=== PATIENT | male | born 1990 | race Caucasian/White ===

== ENCOUNTER 2021-09-02 23:18 | Inpatient (IN) | payer OTHER, SELFPAY ==
--- NOTE | ~2021-09-02 | CT_ITS ---
EXAMINATION: CT HEAD WITHOUT CONTRAST CLINICAL INFORMATION: Head trauma. COMPARISON: None TECHNIQUE: Contiguous axial imaging was performed from the skull base to vertex without intravenous administration of contrast. This CT examination was performed using dose optimization techniques as appropriate, variously including the following: *Automated exposure control *Adjustment of mA and/or kV according to patient size (this includes techniques or standardized protocols for targeted exams where dose is matched to indication/reason for exam; i.e. extremities or head) *Use of iterative reconstruction technique DLP: 719 mGy-cm FINDINGS: There is no evidence of acute intracranial hemorrhage or territorial infarction. No abnormal mass effect or midline shift is seen. Oropeza to white matter differentiation is well preserved. No extra-axial fluid collections are identified. The ventricles are normal in size. There is no abnormal attenuation within the brain parenchyma. The osseous structures and soft tissues are normal. The mastoid air cells are well aerated. There is mild left ethmoid and left maxillary mucosal thickening. CT/CT head/brain wo con IMPRESSION: No acute intracranial pathology.
[2021-09-02 23:44] VITALS: BP 122/72; PULSE 82; RESP 18; TEMP 36.7; O2SAT 98
[2021-09-03] VITALS: BP 122/72; PULSE 82; RESP 18; TEMP 36.6; O2SAT 98
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
[2021-09-03 01:22] VITALS: BMI 25.2
[2021-09-03] MEDS: Gabapentin 400 MG CAPSULE 800 MG PO ×2 (08:36→20:37)
[2021-09-03] MEDS: Famotidine 20 MG TABLET PO ×2 (08:36→20:36)
[2021-09-03] MEDS: buPROPion HCl XL 300 MG TAB.ER.24H PO (08:36)
[2021-09-03 09:00] VITALS: BP 125/75; PULSE 100; RESP 18; TEMP 36.7; O2SAT 100
[2021-09-03] MEDS: diazePAM 5 MG TABLET 10 MG PO ×2 (09:20→20:38)
[2021-09-03] MEDS: Ziprasidone 60 MG CAPSULE PO ×2 (10:02→20:38)
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
[2021-09-03 18:00] VITALS: BP 118/64; PULSE 96; RESP 16; TEMP 36.3; O2SAT 99
[2021-09-03] MEDS: Prazosin HCL 1 MG CAPSULE 2 MG PO (20:37)
[2021-09-03] MEDS: Prazosin HCL 1 MG CAPSULE PO (20:37)
[2021-09-03] MEDS: Zolpidem Tartrate 5 MG TABLET 10 MG PO (20:38)
[2021-09-04] MEDS: chlorproMAZINE HCl 25 MG TABLET 50 MG PO (01:43)
[2021-09-04] MEDS: diazePAM 5 MG TABLET 10 MG PO ×2 (07:20→15:29)
[2021-09-04 07:56] VITALS: PULSE 99; RESP 16; TEMP 36.1; O2SAT 100
[2021-09-04] MEDS: Gabapentin 400 MG CAPSULE 800 MG PO ×3 (07:56→20:24)
[2021-09-04] MEDS: Famotidine 20 MG TABLET PO ×2 (07:56→20:24)
[2021-09-04] MEDS: buPROPion HCl XL 300 MG TAB.ER.24H PO (07:57)
[2021-09-04] MEDS: Ziprasidone 60 MG CAPSULE PO ×2 (07:57→20:24)
--- NOTE | 2021-09-04 11:30 | P.PNPSI_ITS ---
Subjective Subjective Date of Service: 09/04/21 Reason For Visit: major depression Subjective Notes: Conditional Voluntary Interim History: Pt mostly in his room, sleeping. Pt reports he takes valium 4 hrs apart only twice a day. He denies SI/HI. He initially asked this securities underwriter to meet later, but later pt continued to be in bed and minimally engaging in conversation oter than reporting he was doing okay Per nursing, no behavioral concerns. Medication Compliance: Yes Side effects from medications: No Review of Systems Review of Systems Yes all other systems are reviewed and are negative Mental Status Exam Mental Status Exam Narrative: Appearance: casually groomed, fair hygiene in NAD Behavior:intense look, irritable edge, calmer but still on edge psychomotor:no agitation or retardation noted Speech: clear, normal rate/rhythm/spontaneous Thought process:mostly linear, focused on finding housing and having ECT Thought content:complaints about doctors not caring about him, getting agitated easily Mood: depressed Affect: irritable SI:passive HI:none VH/AH:none Delusions:none Insight/judgment:poor Memory/cog: alert, oriented x 3. grossly intact to conversational testing. Diagnostics Vital Signs (24Hr): Vital Signs - 24 hr 09/04/21 07:56 Temperature 97.0 F Pulse Rate 99 Respiratory Rate 16 Pulse Oximetry 100 BMI result Verdana 4 Body Mass Index Verdana 4 25.2 Verdana 4 Verdana 4 Imaging Radiology Impressions: ITS Impressions Head CT 09/03/21 20:33 IMPRESSION: No acute intracranial pathology. Medications Medications Current Medications Acetaminophen (Acetaminophen 325 Mg Tablet) 650 mg PO Q6H PRN PRN Reason: Headache/Pain Mild Scale (1-3) Al Hydroxide/Mg Hydroxide (Magnesium Hydrox/Alum Hydrox 30 Ml Oral.Susp) 30 ml PO Q6H PRN PRN Reason: Heartburn/Nausea Bupropion HCl (Bupropion Hcl Xl 300 Mg Tab.Er.24h) 300 mg PO DAILY [facility] Last Admin: 09/04/21 07:57 Dose: 300 mg Documented by: Chlorpromazine HCl (Chlorpromazine Hcl 25 Mg Tablet) 50 mg PO Q6H PRN PRN Reason: Agitation Last Admin: 09/04/21 01:43 Dose: 50 mg Documented by: Diazepam (Diazepam 5 Mg Tablet) 10 mg PO Q4H PRN PRN Reason: Anxiety Last Admin: 09/04/21 15:29 Dose: 10 mg Documented by: Famotidine (Famotidine 20 Mg Tablet) 20 mg PO BID [facility] Last Admin: 09/04/21 07:56 Dose: 20 mg Documented by: Gabapentin (Gabapentin 400 Mg Capsule) 800 mg PO QID [facility] Last Admin: 09/04/21 16:07 Dose: 800 mg Documented by: Hydroxyzine HCl (Hydroxyzine Hcl 25 Mg Tablet) 25 mg PO BEDTIME PRN PRN Reason: Anxiety Magnesium Hydroxide (Milk Of Magnesia 30 Ml Oral.Susp) 30 ml PO DAILY PRN PRN Reason: Constipation Nicotine Polacrilex (Nicotine Polacrilex 2 Mg Gum) 4 mg BUCCAL Q2H PRN PRN Reason: Nicotine Cravings Prazosin HCl (Prazosin Hcl 1 Mg Capsule) 1 mg PO BEDTIME [facility]; Protocol Last Admin: 09/03/21 20:37 Dose: 1 mg Documented by: Prazosin HCl (Prazosin Hcl 1 Mg Capsule) 2 mg PO BEDTIME [facility]; Protocol Last Admin: 09/03/21 20:37 Dose: 2 mg Documented by: Trazodone HCl (Trazodone Hcl 50 Mg Tablet) 50 mg PO BEDTIME PRN PRN Reason: Insomnia Ziprasidone (Ziprasidone 60 Mg Capsule) 60 mg PO BID [facility] Last Admin: 09/04/21 07:57 Dose: 60 mg Documented by: Zolpidem Tartrate (Zolpidem Tartrate 5 Mg Tablet) 10 mg PO BEDTIME [facility] Last Admin: 09/03/21 20:38 Dose: 10 mg Documented by: Allergies Allergies Allergy/AdvReac Type Severity Reaction Status Date / Time haloperidol [From AdvReac Unknown Unknown Unverified 09/03/21 00:05 Haldol] Assessment & Plan Assessment & Plan (1) Bipolar 1 disorder, mixed, moderate: Status: Acute Code(s): F31.62 - Bipolar disorder, current episode mixed, moderate (2) Synthetic cannabinoid dependence: Status: Acute Code(s): F19.20 - Other psychoactive substance dependence, uncomplicated (3) Alcohol use disorder, moderate, dependence: Status: Acute Code(s): F10.20 - Alcohol dependence, uncomplicated (4) TBI (traumatic brain injury): Status: Acute Code(s): S06.9X9A - Unspecified intracranial injury with loss of consciousness of unspecified duration, initial encounter Plan Mr. Finney is a 31 year-old male with hx of alcohol use, K2 use, Bipolar Disorder who self presented to [facility] after he called 911 and reported SI with plan to hang himself or by suicide by copy messenger with a twist. His utox positive for benzo and cannabinoids. Pt has been homeless for past 10 years. He reports hx of impulsivity, aggression, mood lability. No hallucination nor delusional content. Pt presents as irritable, low frustration tolerance. He asks for ECT as he reports he was told it can help symptoms described above. Pt has been living on streets, appears quite reactive. He reports SI but no plan today. He hopes that hospital can find him housing, which pt informed that may not be realistic. We discussed risks, benefits and alternative treatment options. Pt declines starting mood stabilizer such as depakote, or trileptal or lithium. Pt reports he would only take thorazine as needed not scheduled as it is too sedating. Pt reports he has been on clonidine but his BP too low. He was hesitant about beta froy. He reports best medication diazepam. PLAN 1. Admit to M3, CV, 15 minutes checks for safety 2. Continue thorazine and other medications. consider beta froy if pt declines mood stabilizer 3. Obtain collateral information 4. Aftercare planning I spent minutes with the patient and/or on the patient floor today, greater than?50% of which was spent counseling/coordinating care. Reason for contiued inpatient stay Substantial Risk for: harm to others and inability to function
[2021-09-04 20:15] VITALS: BP 131/85; PULSE 100; TEMP 36.7
[2021-09-04] MEDS: Zolpidem Tartrate 5 MG TABLET 10 MG PO (20:24)
[2021-09-04] MEDS: Prazosin HCL 1 MG CAPSULE 2 MG PO (20:33)
[2021-09-04] MEDS: Prazosin HCL 1 MG CAPSULE PO (20:33)
[2021-09-05] MEDS: diazePAM 5 MG TABLET 10 MG PO ×2 (07:03→14:15)
[2021-09-05] MEDS: Famotidine 20 MG TABLET PO ×2 (08:15→20:46)
[2021-09-05] MEDS: Ziprasidone 60 MG CAPSULE PO ×2 (08:15→20:46)
[2021-09-05] MEDS: buPROPion HCl XL 300 MG TAB.ER.24H PO (08:15)
[2021-09-05] MEDS: Gabapentin 400 MG CAPSULE 800 MG PO ×4 (08:15→20:48)
[2021-09-05 08:45] VITALS: BP 113/79; PULSE 85; TEMP 37.2
--- NOTE | 2021-09-05 08:50 | P.PNPSI_ITS ---
Subjective Subjective Date of Service: 09/05/21 Reason For Visit: major depression Subjective Notes: Conditional Voluntary Interim History: 09/04: Pt mostly in his room, sleeping. Pt reports he takes valium 4 hrs apart only twice a day. He denies SI/HI. He initially asked this program writer to meet later, but later pt continued to be in bed and minimally engaging in conversation oter than reporting he was doing okay Per nursing, no behavioral concerns. 09/05: Remains hyperactive in common area/talking w POS/ Speaking Ukrainian with Ukrainian staff, intrusive. Refused to meet TW you did not have time for me earlier Why dont you dance for me . Review of Systems Medical Review of Systems: unchanged Review of Systems Review of Systems Yes all other systems are reviewed and are negative Mental Status Exam Mental Status Exam Narrative: Appearance: casually groomed, fair hygiene in NAD Behavior:intense look, irritable edge, calmer but still on edge psychomotor:no agitation or retardation noted Speech: clear, normal rate/rhythm/spontaneous Thought process:mostly linear, focused on finding housing and having ECT Thought content:complaints about doctors not caring about him, getting agitated easily Mood: depressed Affect: irritable SI:passive HI:none VH/AH:none Delusions:none Insight/judgment:poor Memory/cog: alert, oriented x 3. grossly intact to conversational testing. Diagnostics Vital Signs (24Hr): Vital Signs - 24 hr 09/04/21 20:15 Temperature 98.0 F Pulse Rate 100 Blood Pressure 131/85 BMI result Verdana 4 Body Mass Index Verdana 4 25.2 Verdana 4 Verdana 4 Imaging Radiology Impressions: ITS Impressions Head CT 09/03/21 20:33 IMPRESSION: No acute intracranial pathology. Medications Medications Current Medications Acetaminophen (Acetaminophen 325 Mg Tablet) 650 mg PO Q6H PRN PRN Reason: Headache/Pain Mild Scale (1-3) Al Hydroxide/Mg Hydroxide (Magnesium Hydrox/Alum Hydrox 30 Ml Oral.Susp) 30 ml PO Q6H PRN PRN Reason: Heartburn/Nausea Bupropion HCl (Bupropion Hcl Xl 300 Mg Tab.Er.24h) 300 mg PO DAILY [facility] Last Admin: 09/05/21 08:15 Dose: 300 mg Documented by: Chlorpromazine HCl (Chlorpromazine Hcl 25 Mg Tablet) 50 mg PO Q6H PRN PRN Reason: Agitation Last Admin: 09/04/21 01:43 Dose: 50 mg Documented by: Diazepam (Diazepam 5 Mg Tablet) 10 mg PO Q4H PRN PRN Reason: Anxiety Last Admin: 09/05/21 07:03 Dose: 10 mg Documented by: Famotidine (Famotidine 20 Mg Tablet) 20 mg PO BID [facility] Last Admin: 09/05/21 08:15 Dose: 20 mg Documented by: Gabapentin (Gabapentin 400 Mg Capsule) 800 mg PO QID [facility] Last Admin: 09/05/21 08:15 Dose: 800 mg Documented by: Hydroxyzine HCl (Hydroxyzine Hcl 25 Mg Tablet) 25 mg PO BEDTIME PRN PRN Reason: Anxiety Magnesium Hydroxide (Milk Of Magnesia 30 Ml Oral.Susp) 30 ml PO DAILY PRN PRN Reason: Constipation Nicotine Polacrilex (Nicotine Polacrilex 2 Mg Gum) 4 mg BUCCAL Q2H PRN PRN Reason: Nicotine Cravings Prazosin HCl (Prazosin Hcl 1 Mg Capsule) 1 mg PO BEDTIME [facility]; Protocol Last Admin: 09/04/21 20:33 Dose: 1 mg Documented by: Prazosin HCl (Prazosin Hcl 1 Mg Capsule) 2 mg PO BEDTIME [facility]; Protocol Last Admin: 09/04/21 20:33 Dose: 2 mg Documented by: Trazodone HCl (Trazodone Hcl 50 Mg Tablet) 50 mg PO BEDTIME PRN PRN Reason: Insomnia Ziprasidone (Ziprasidone 60 Mg Capsule) 60 mg PO BID [facility] Last Admin: 09/05/21 08:15 Dose: 60 mg Documented by: Zolpidem Tartrate (Zolpidem Tartrate 5 Mg Tablet) 10 mg PO BEDTIME [facility] Last Admin: 09/04/21 20:24 Dose: 10 mg Documented by: Allergies Allergies Allergy/AdvReac Type Severity Reaction Status Date / Time metoclopramide [From Allergy Unknown Abdominal Verified 09/05/21 07:01 Reglan] Pain haloperidol [From AdvReac Unknown Involuntary Verified 09/05/21 07:01 Haldol] Spasms Assessment & Plan Assessment & Plan (1) Bipolar 1 disorder, mixed, moderate: Status: Acute Code(s): F31.62 - Bipolar disorder, current episode mixed, moderate (2) Synthetic cannabinoid dependence: Status: Acute Code(s): F19.20 - Other psychoactive substance dependence, uncomplicated (3) Alcohol use disorder, moderate, dependence: Status: Acute Code(s): F10.20 - Alcohol dependence, uncomplicated (4) TBI (traumatic brain injury): Status: Acute Code(s): S06.9X9A - Unspecified intracranial injury with loss of consciousness of unspecified duration, initial encounter Plan Mr. Finney is a 31 year-old male with hx of alcohol use, K2 use, Bipolar Disorder who self presented to [facility] after he called 911 and reported SI with plan to hang himself or by suicide by buffer copper with a twist. His utox positive for benzo and cannabinoids. Pt has been homeless for past 10 years. He reports hx of impulsivity, aggression, mood lability. No hallucination nor delusional content. Pt presents as irritable, low frustration tolerance. He asks for ECT as he reports he was told it can help symptoms described above. Pt has been living on streets, appears quite reactive. He reports SI but no plan today. He hopes that hospital can find him housing, which pt informed that may not be realistic. We discussed risks, benefits and alternative treatment options. Pt declines starting mood stabilizer such as depakote, or trileptal or lithium. Pt reports he would only take thorazine as needed not scheduled as it is too sedating. Pt reports he has been on clonidine but his BP too low. He was hesitant about beta froy. He reports best medication diazepam. PLAN 1. Admit to M3, CV, 15 minutes checks for safety 2. Continue thorazine and other medications. consider beta froy if pt declines mood stabilizer 3. Obtain collateral information 4. Aftercare planning 09/05: Ct Rx plan. I spent minutes with the patient and/or on the patient floor today, greater than?50% of which was spent counseling/coordinating care. Reason for contiued inpatient stay Substantial Risk for: harm to others and rapid decompensation
[2021-09-05 19:54] VITALS: BP 110/73; PULSE 85; RESP 16; TEMP 36.7; O2SAT 99
[2021-09-05] MEDS: Prazosin HCL 1 MG CAPSULE PO (20:46)
[2021-09-05] MEDS: Zolpidem Tartrate 5 MG TABLET 10 MG PO (20:47)
[2021-09-05] MEDS: Prazosin HCL 1 MG CAPSULE 2 MG PO (20:49)
--- NOTE | 2021-09-06 05:10 | P.PNPSI_ITS ---
Subjective Subjective Date of Service: 09/06/21 Reason For Visit: major depression Interim History: 09/04: Pt mostly in his room, sleeping. Pt reports he takes valium 4 hrs apart only twice a day. He denies SI/HI. He initially asked this designer writer to meet later, but later pt continued to be in bed and minimally engaging in conversation oter than reporting he was doing okay Per nursing, no behavioral concerns. 09/05: Remains hyperactive in common area/talking w POS/ Speaking Czech with S panish staff, intrusive. Refused to meet TW you did not have time for me earlier Why dont you dance for me . 09/06: Reluctantly agreed to meet then stated What can you do for me . Talked about not screwing this stay here bc Donna been kicked out of all places . Last night refused a roommate and threw a mattress, threatened harm. I broke my previous roommate nose and socket (in an earlier hosp stay ). 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 Pt remains edgy. No roommate recommended Medication Compliance: Yes Side effects from medications: No Review of Systems Acute medical concerns: No Review of Systems Review of Systems Yes all other systems are reviewed and are negative Mental Status Exam Mental Status Exam Narrative: Appearance: casually groomed, fair hygiene in NAD Behavior:intense look, irritable edge, calmer but still on edge psychomotor:no agitation or retardation noted Speech: clear, normal rate/rhythm/spontaneous Thought process:mostly linear, focused on finding housing and having ECT Thought content:complaints about doctors not caring about him, getting agitated easily Mood: depressed Affect: irritable SI:passive HI:none VH/AH:none Delusions:none Insight/judgment:poor Memory/cog: alert, oriented x 3. grossly intact to conversational testing. Diagnostics Vital Signs (24Hr): Vital Signs - 24 hr 09/05/21 08:45 09/05/21 19:54 Temperature 98.9 F 98.1 F Pulse Rate 85 85 Respiratory Rate 16 Blood Pressure 113/79 110/73 Pulse Oximetry 99 BMI result Verdana 4 Body Mass Index Verdana 4 25.2 Verdana 4 Verdana 4 Imaging Radiology Impressions: ITS Impressions Head CT 09/03/21 20:33 IMPRESSION: No acute intracranial pathology. Medications Medications Current Medications Acetaminophen (Acetaminophen 325 Mg Tablet) 650 mg PO Q6H PRN PRN Reason: Headache/Pain Mild Scale (1-3) Al Hydroxide/Mg Hydroxide (Magnesium Hydrox/Alum Hydrox 30 Ml Oral.Susp) 30 ml PO Q6H PRN PRN Reason: Heartburn/Nausea Bupropion HCl (Bupropion Hcl Xl 300 Mg Tab.Er.24h) 300 mg PO DAILY [facility] Last Admin: 09/05/21 08:15 Dose: 300 mg Documented by: Chlorpromazine HCl (Chlorpromazine Hcl 25 Mg Tablet) 50 mg PO Q6H PRN PRN Reason: Agitation Last Admin: 09/04/21 01:43 Dose: 50 mg Documented by: Diazepam (Diazepam 5 Mg Tablet) 10 mg PO Q4H PRN PRN Reason: Anxiety Last Admin: 09/05/21 14:15 Dose: 10 mg Documented by: Famotidine (Famotidine 20 Mg Tablet) 20 mg PO BID [facility] Last Admin: 09/05/21 20:46 Dose: 20 mg Documented by: Gabapentin (Gabapentin 400 Mg Capsule) 800 mg PO QID [facility] Last Admin: 09/05/21 20:48 Dose: 800 mg Documented by: Hydroxyzine HCl (Hydroxyzine Hcl 25 Mg Tablet) 25 mg PO BEDTIME PRN PRN Reason: Anxiety Magnesium Hydroxide (Milk Of Magnesia 30 Ml Oral.Susp) 30 ml PO DAILY PRN PRN Reason: Constipation Nicotine Polacrilex (Nicotine Polacrilex 2 Mg Gum) 4 mg BUCCAL Q2H PRN PRN Reason: Nicotine Cravings Prazosin HCl (Prazosin Hcl 1 Mg Capsule) 1 mg PO BEDTIME [facility]; Protocol Last Admin: 09/05/21 20:46 Dose: 1 mg Documented by: Prazosin HCl (Prazosin Hcl 1 Mg Capsule) 2 mg PO BEDTIME [facility]; Protocol Last Admin: 09/05/21 20:49 Dose: 2 mg Documented by: Trazodone HCl (Trazodone Hcl 50 Mg Tablet) 50 mg PO BEDTIME PRN PRN Reason: Insomnia Ziprasidone (Ziprasidone 60 Mg Capsule) 60 mg PO BID [facility] Last Admin: 09/05/21 20:46 Dose: 60 mg Documented by: Zolpidem Tartrate (Zolpidem Tartrate 5 Mg Tablet) 10 mg PO BEDTIME [facility] Last Admin: 09/05/21 20:47 Dose: 10 mg Documented by: Allergies Allergies Allergy/AdvReac Type Severity Reaction Status Date / Time metoclopramide [From Allergy Unknown Abdominal Verified 09/05/21 07:01 Reglan] Pain haloperidol [From AdvReac Unknown Involuntary Verified 09/05/21 07:01 Haldol] Spasms Assessment & Plan Assessment & Plan (1) Bipolar 1 disorder, mixed, moderate: Status: Acute Code(s): F31.62 - Bipolar disorder, current episode mixed, moderate (2) Synthetic cannabinoid dependence: Status: Acute Code(s): F19.20 - Other psychoactive substance dependence, uncomplicated (3) Alcohol use disorder, moderate, dependence: Status: Acute Code(s): F10.20 - Alcohol dependence, uncomplicated (4) TBI (traumatic brain injury): Status: Acute Code(s): S06.9X9A - Unspecified intracranial injury with loss of consciousness of unspecified duration, initial encounter Plan Mr. 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 His utox positive for benzo and cannabinoids. Pt has been homeless for past 10 years. He reports hx of impulsivity, aggression, mood lability. No hallucination nor delusional content. Pt presents as irritable, low frustration tolerance. He asks for ECT as he reports he was told it can help symptoms described above. Pt has been living on streets, appears quite reactive. He reports SI but no plan today. He hopes that hospital can find him housing, which pt informed that may not be realistic. We discussed risks, benefits and alternative treatment options. Pt declines starting mood stabilizer such as depakote, or trileptal or lithium. Pt reports he would only take thorazine as needed not scheduled as it is too sedating. Pt reports he has been on clonidine but his BP too low. He was hesitant about beta froy. He reports best medication diazepam. PLAN 1. Admit to M3, CV, 15 minutes checks for safety 2. Continue thorazine and other medications. consider beta froy if pt declines mood stabilizer 3. Obtain collateral information 4. Aftercare planning 09/05: Ct Rx plan. 09/06: Ct Rx plan I spent minutes with the patient and/or on the patient floor today, greater than?50% of which was spent counseling/coordinating care. Reason for contiued inpatient stay Substantial Risk for: harm to others and rapid decompensation
[2021-09-06] MEDS: diazePAM 5 MG TABLET 10 MG PO ×2 (06:02→21:08)
[2021-09-06] MEDS: Famotidine 20 MG TABLET PO ×2 (07:49→21:07)
[2021-09-06] MEDS: buPROPion HCl XL 300 MG TAB.ER.24H PO (07:49)
[2021-09-06] MEDS: Gabapentin 400 MG CAPSULE 800 MG PO ×4 (07:49→21:10)
[2021-09-06] MEDS: Ziprasidone 60 MG CAPSULE PO ×2 (07:49→21:08)
[2021-09-06 07:56] VITALS: BP 115/84; PULSE 80; RESP 16; TEMP 36.6; O2SAT 100
--- NOTE | 2021-09-06 12:53 | PC.NURSE ---
On 09/05/21 I met with patient to request that he move in to another room so I could free up a room for a female admission. He declined to move politely. When I told him we have to private rooms and my other option was to move a male patient into his room he became quickly agitated. He began shouting at me If they fucking snore I will lose it. I swear I will hurt somebody. Despite encouragement to calm down and have a conversation, patient escalated, continuing to shout loudly I'll make sure no one can sleep here. while he proceeded to strip the sheets from other bed in his room and throw and kick the mattress into the hallway. In addition patient shouted, Don't move that fucking retard in with me. I'll hurt people. Firm limits were set and patient was redirected by this nurse to stop shouting and put the mattress back on the bed. He reluctantly complied. He spent some time in his room alone. Later returning to the milieu where he glared angrily at this nurse
[2021-09-06 18:00] VITALS: RESP 16
[2021-09-06] MEDS: Zolpidem Tartrate 5 MG TABLET 10 MG PO (21:00)
[2021-09-06] MEDS: Prazosin HCL 1 MG CAPSULE 2 MG PO (21:11)
[2021-09-06] MEDS: Prazosin HCL 1 MG CAPSULE PO (21:11)
[2021-09-06] MEDS: chlorproMAZINE HCl 25 MG TABLET 50 MG PO (23:28)
[2021-09-07] MEDS: diazePAM 5 MG TABLET 10 MG PO (06:47)
[2021-09-07] MEDS: Gabapentin 400 MG CAPSULE 800 MG PO ×2 (08:00→12:58)
[2021-09-07] MEDS: buPROPion HCl XL 300 MG TAB.ER.24H PO (08:00)
[2021-09-07] MEDS: Famotidine 20 MG TABLET PO (08:00)
[2021-09-07 08:02] VITALS: BP 122/77; PULSE 94; RESP 16; TEMP 36.5; O2SAT 99
[2021-09-07] MEDS: LORazepam 1 MG TABLET 2 MG PO (11:26)
--- NOTE | 2021-09-07 12:16 | P.PNPSI_ITS ---
Subjective Subjective Date of Service: 09/07/21 Reason For Visit: major depression Interim History: 09/04: Pt mostly in his room, sleeping. Pt reports he takes valium 4 hrs apart only twice a day. He denies SI/HI. He initially asked this journalists and other writers to meet later, but later pt continued to be in bed and minimally engaging in conversation oter than reporting he was doing okay Per nursing, no behavioral concerns. 09/05: Remains hyperactive in common area/talking w POS/ Speaking Lithuanian with S panish staff, intrusive. Refused to meet TW bc you did not have time for me earlier Why dont you dance for me . 09/06: Reluctantly agreed to meet then stated What can you do for me . Talked about not screwing this stay here bc Donna been kicked out of all places . Last night refused a roommate and threw a mattress, threatened harm. I broke my previous roommate nose and socket (in an earlier hosp stay ). 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 Pt remains edgy. No roommate recommended Review of Systems Review of Systems Yes all other systems are reviewed and are negative Mental Status Exam Mental Status Exam Narrative: Appearance: casually groomed, fair hygiene in NAD Behavior:intense look, irritable edge, calmer but still on edge psychomotor:no agitation or retardation noted Speech: clear, normal rate/rhythm/spontaneous Thought process:mostly linear, focused on finding housing and staying on unit until hospital finds him housing Thought content:complaints about doctors not caring about him, getting agitated easily Mood: depressed Affect: irritable SI:denies HI:none VH/AH:none Delusions:none Insight/judgment:poor x 2. Memory/cog: alert, oriented x 3. grossly intact to conversational testing. Diagnostics Vital Signs (24Hr): Vital Signs - 24 hr 09/06/21 18:00 09/07/21 08:02 Temperature 97.7 F Pulse Rate 94 Respiratory Rate 16 16 Blood Pressure 122/77 Pulse Oximetry 99 BMI result Body Mass Index 25.2 Imaging Radiology Impressions: ITS Impressions Head CT 09/03/21 20:33 IMPRESSION: No acute intracranial pathology. Medications Medications Current Medications Acetaminophen (Acetaminophen 325 Mg Tablet) 650 mg PO Q6H PRN PRN Reason: Headache/Pain Mild Scale (1-3) Al Hydroxide/Mg Hydroxide (Magnesium Hydrox/Alum Hydrox 30 Ml Oral.Susp) 30 ml PO Q6H PRN PRN Reason: Heartburn/Nausea Bupropion HCl (Bupropion Hcl Xl 300 Mg Tab.Er.24h) 300 mg PO DAILY [facility] Last Admin: 09/07/21 08:00 Dose: 300 mg Documented by: Chlorpromazine HCl (Chlorpromazine Hcl 25 Mg Tablet) 50 mg PO Q6H PRN PRN Reason: Agitation Last Admin: 09/06/21 23:28 Dose: 50 mg Documented by: Diazepam (Diazepam 5 Mg Tablet) 10 mg PO DAILY PRN PRN Reason: Anxiety Famotidine (Famotidine 20 Mg Tablet) 20 mg PO BID [facility] Last Admin: 09/07/21 08:00 Dose: 20 mg Documented by: Gabapentin (Gabapentin 400 Mg Capsule) 800 mg PO QID [facility] Last Admin: 09/07/21 08:00 Dose: 800 mg Documented by: Hydroxyzine HCl (Hydroxyzine Hcl 25 Mg Tablet) 25 mg PO BEDTIME PRN PRN Reason: Anxiety Magnesium Hydroxide (Milk Of Magnesia 30 Ml Oral.Susp) 30 ml PO DAILY PRN PRN Reason: Constipation Nicotine Polacrilex (Nicotine Polacrilex 2 Mg Gum) 4 mg BUCCAL Q2H PRN PRN Reason: Nicotine Cravings Prazosin HCl (Prazosin Hcl 1 Mg Capsule) 1 mg PO BEDTIME [facility]; Protocol Last Admin: 09/06/21 21:11 Dose: 1 mg Documented by: Prazosin HCl (Prazosin Hcl 1 Mg Capsule) 2 mg PO BEDTIME [facility]; Protocol Last Admin: 09/06/21 21:11 Dose: 2 mg Documented by: Trazodone HCl (Trazodone Hcl 50 Mg Tablet) 50 mg PO BEDTIME PRN PRN Reason: Insomnia Zolpidem Tartrate (Zolpidem Tartrate 5 Mg Tablet) 10 mg PO BEDTIME [facility] Last Admin: 09/06/21 21:00 Dose: 10 mg Documented by: Allergies Allergies Allergy/AdvReac Type Severity Reaction Status Date / Time metoclopramide [From Reglan] Allergy Unknown Abdominal Verified 09/05/21 07:01 Pain haloperidol [From Haldol] AdvReac Unknown Involuntary Verified 09/05/21 07:01 Spasms Assessment & Plan Assessment & Plan (1) Bipolar 1 disorder, mixed, moderate: Status: Acute Code(s): F31.62 - Bipolar disorder, current episode mixed, moderate (2) Synthetic cannabinoid dependence: Status: Acute Code(s): F19.20 - Other psychoactive substance dependence, uncomplicated (3) Alcohol use disorder, moderate, dependence: Status: Acute Code(s): F10.20 - Alcohol dependence, uncomplicated (4) TBI (traumatic brain injury): Status: Acute Code(s): S06.9X9A - Unspecified intracranial injury with loss of consciousness of unspecified duration, initial encounter Plan Mr. 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 His utox positive for benzo and cannabinoids. Pt has been homeless for past 10 years. He reports hx of impulsivity, aggression, mood lability. No hallucination nor delusional content. Pt presents as irritable, low frustration tolerance. He asks for ECT as he reports he was told it can help symptoms described above. Pt has been living on streets, appears quite reactive. He reports SI but no plan today. He hopes that hospital can find him housing, which pt informed that may not be realistic. We discussed risks, benefits and alternative treatment options. Pt declines starting mood stabilizer such as depakote, or trileptal or lithium. Pt reports he would only take thorazine as needed not scheduled as it is too sedating. Pt reports he has been on clonidine but his BP too low. He was hesitant about beta froy. He reports best medication diazepam. PLAN 1. Admit to M3, CV, 15 minutes checks for safety 2. Continue thorazine and other medications. consider beta froy if pt declines mood stabilizer 3. Obtain collateral information 4. Aftercare planning 09/05: Ct Rx plan. 09/06: Ct Rx plan I spent minutes with the patient and/or on the patient floor today, greater than?50% of which was spent counseling/coordinating care. Reason for contiued inpatient stay Substantial Risk for: harm to others
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
--- NOTE | 2021-09-07 16:01 | PC.NURSE ---
Patient was administratively discharged by treatment team. Patient was given discharge instructions with next dose times for medications and community support/crisis phone numbers.
== END 2021-09-07 13:30 | disposition home or self-care (01) | DRG 755 ==
PROVIDERS: Admitting Provider Psychiatry & Neurology Psychiatry; Visit Provider Social Worker
DX: F43.10 Post-traumatic stress disorder, unspecified (principal); R45.851 Suicidal ideations; F17.210 Nicotine dependence, cigarettes, uncomplicated; Z59.02 Unsheltered homelessness; F31.62 Bipolar disorder, current episode mixed, moderate; F10.20 Alcohol dependence, uncomplicated; Z87.820 Personal history of traumatic brain injury; Z71.6 Tobacco abuse counseling; Z79.899 Other long term (current) drug therapy
CPT/HCPCS: 70450